=== PATIENT | male | born 1975 | race Caucasian/White ===

== ENCOUNTER → 2019-06-23 14:37 | Outpatient (BNVA) | payer OTHER, SELFPAY | PROVIDERS: Family Provider General Practice; PCP Family Medicine; Visit Provider Urology | DX: N39.9 Disorder of urinary system, unspecified (principal); R39.89 Other symptoms and signs involving the genitourinary system | CPT/HCPCS: 81001 ==

== ENCOUNTER → 2022-01-24 08:31 | Outpatient (BNVA) | payer OTHER, SELFPAY | PROVIDERS: Family Provider General Practice; PCP Family Medicine; Visit Provider Family Medicine | DX: F41.0 Panic disorder [episodic paroxysmal anxiety] (principal); F41.9 Anxiety disorder, unspecified; R00.0 Tachycardia, unspecified; Z13.1 Encounter for screening for diabetes mellitus; Z13.6 Encounter for screening for cardiovascular disorders | CPT/HCPCS: 80053; 80061; 83036; 84443; 85025 ==

== ENCOUNTER → 2022-05-31 08:44 | Outpatient (BNVA) | payer OTHER, SELFPAY | PROVIDERS: Family Provider General Practice; PCP Family Medicine; Visit Provider Family Medicine | DX: N52.9 Male erectile dysfunction, unspecified (principal); R68.82 Decreased libido; F41.9 Anxiety disorder, unspecified; F41.0 Panic disorder [episodic paroxysmal anxiety]; R42 Dizziness and giddiness; B35.6 Tinea cruris | CPT/HCPCS: 82040; 84270; 84403 ==

== ENCOUNTER → 2022-06-03 07:34 | Outpatient (BNVA) | payer OTHER, SELFPAY | PROVIDERS: Family Provider General Practice; PCP Family Medicine; Visit Provider Family Medicine | DX: E34.9 Endocrine disorder, unspecified (principal) | CPT/HCPCS: 84403 ==

== ENCOUNTER → 2022-07-17 15:11 | Outpatient (BNVA) | payer OTHER, SELFPAY | PROVIDERS: Family Provider General Practice; PCP Family Medicine; Visit Provider Family Medicine | DX: F41.0 Panic disorder [episodic paroxysmal anxiety] (principal); F41.9 Anxiety disorder, unspecified; I10 Essential (primary) hypertension; N52.9 Male erectile dysfunction, unspecified | CPT/HCPCS: 80178 ==

== ENCOUNTER 2022-09-02 05:58 | Outpatient (CLI) | payer OTHER, SELFPAY ==
--- NOTE | 2022-09-02 06:15 | US_ITS ---
WS: [id number] ULTRASOUND SOFT TISSUES LEFT supraclavicular. HISTORY: Palpable mass. COMPARISON: None available. TECHNIQUE: 2-D and color Doppler imaging is submitted. There is a well-circumscribed solid hypoechoic mass in the LEFT supraclavicular region measuring 3.0 x 2.1 x 2.5 cm. There is mild increased vascularity. Only a single lymph node is identified but the s urrounding area was not imaged. US/US soft tissue head neck [id number] IMPRESSION: 1. Abnormal soft tissue mass in the LEFT supraclavicular region suspicious for abnormal lymph node. 2. Recommend follow-up CT evaluation. CT neck and chest with IV contrast recom mended.
== END 2022-09-02 05:59 | disposition home or self-care (01) ==
PROVIDERS: PCP Family Medicine; Visit Provider Psychiatry & Neurology Neurology
DX: R29.90 Unspecified symptoms and signs involving the nervous system (principal)
CPT/HCPCS: 76536; 95813

== ENCOUNTER 2022-09-10 07:28 | Outpatient (CLI) | payer OTHER, SELFPAY ==
--- NOTE | 2022-09-10 | MR_ITS ---
WS: [id number] MRI HEAD WITH CONTRAST TECHNIQUE: Sagittal T1, T2 axial, T2 axial FLAIR, axial susceptibility weighted imaging, axial diffus ion weighted images, and coronal T2 images were obtained. Pre and post-T1 axial and post T1 coronal i mages. ADC and FSPGR images. CLINICAL INFORMATION: TREMORS COMPARISON: None. FINDINGS: No evidence of restricted diffusion to suggest acute ischemia. Ventricular system and basal cisterns are patent. No suspicious intracranial signal abnormalities. Normal palacios-white differentiation. Linda l posterior fossa. Normal vascular flow voids at the skull base. No extra-axial fluid collections. No evidence of mass or mass effect. Paranasal sinuses and mastoid air cells well aerated. No hemosiderin on susceptibly weighted images. Normal optic chiasm and pituitary infundibulum. Normal cavernous sinuses and Meckel's cave. Temporal lobes and hippocampal formations are normal in appearance. No abnormal intracranial enhancement. Norm al visualized dural venous sinuses. No other suspicious findings. MR/MR head wo/w con [id number] IMPRESSION: 1. No evidence of restricted diffusion to suggest acute ischemia. 2. No suspicious intracranial signal abnormalities. 3. No hemosiderin on susceptibly weighted images. 4. No abnormal gadolinium enhancement. 5. Temporal lobes and hippocampal formations are normal in appearance.
[2022-09-10] MEDS: gadobenate dimeglumine 20 mL vial IV (08:24)
== END 2022-09-10 07:29 | disposition home or self-care (01) ==
PROVIDERS: PCP Family Medicine; Visit Provider Psychiatry & Neurology Neurology
DX: R25.1 Tremor, unspecified (principal)
CPT/HCPCS: 70553; A9577

== ENCOUNTER 2022-09-18 09:07 | Outpatient (CLI) | payer OTHER, SELFPAY ==
--- NOTE | 2022-09-18 09:30 | CT_ITS ---
WS: [id number] CT CHEST TECHNIQUE: Contrast enhanced CT of the chest with coronal and sagittal reformatted images. CLINICAL INFORMATION: R22.1 - Localized swelling, mass and lump, neck COMPARISON: CT neck September 18, 2022 DLP: 549.[address] scans at [facility] use at least one of these dose optimization techniques: automated e xposure control; mA and/or kV adjustment per patient size (includes targeted exams where dose is matc hed to clinical indication); or iterative reconstruction. FINDINGS:Tiny noncalcified nodule in the lingula measuring 4 mm. Additional noncalcified nodule LEFT upper lobe measuring 4.8 mm. LEFT upper lobe noncalcified nodule measuring 3.5 mm. Tree-in-bud opacit ies in the lingula likely inflammatory. LEFT lower lobe nodule along the fissure measuring 5.3 mm. Sm all nodule along the RIGHT lower lobe near the diaphragm measuring 6 mm. Lungs are well aerated. Slight bibasilar atelectasis. Moderate esophageal hiatal hernia. Aortic calci fication. No mediastinal or hilar lymphadenopathy. No axillary lymphadenopathy. Adrenal glands are normal. Diffuse fatty infiltration liver normal portal vein and splenic vein. Tiny cyst undersurface RIGHT hepatic lobe. Normal spleen. Adrenal glands are normal. CT/CT chest w con* [id number] IMPRESSION: 1. No focal pneumonia or pleural fluid. 2. A few scattered subcentimeter pulmonary nodules described above. Recommend 12 month follow-up. 3. No mediastinal or hilar lymphadenopathy. 4. Diffuse fatty infiltration liver. 5. Moderate esophageal hiatal hernia.
--- NOTE | 2022-09-18 09:45 | CT_ITS ---
WS: [id number] CT NECK TECHNIQUE: Contrast-enhanced CT of the neck with coronal and sagittal reformatted images. CLINICAL INFORMATION: R22.1 - Localized swelling, mass and lump, neck COMPARISON: None. DLP: 260.[address] scans at [facility] use at least one of these dose optimization techniques: automated e xposure control; mA and/or kV adjustment per patient size (includes targeted exams where dose is matc hed to clinical indication); or iterative reconstruction. FINDINGS: Palpable marker overlying the LEFT lower neck. Deep to the palpable marker is an ovoid karla d nodule measuring 3.2 x 2.2 x 2.7 CM. This is well-circumscribed and located within the posterior tr iangle. Submandibular and parotid glands are normal. Tongue base appears normal. Normal posterior nasopharynx . Normal parapharyngeal fat. No evidence of supraglottic or glottic mass. Normal subglottic airway. T hyroid gland is normal. Lung apices are well aerated. Straightening with slight reversal normal cervical lordosis. Disc space narrowing worse at C5-C6 with disc osteophyte complex with moderate central canal stenosis. Mastoid air cells well aerated. Small retention cyst LEFT maxillary sinus. Partially visualized paranasal sin uses well aerated. Lung apices are well aerated. CT/CT neck w con* [id number] IMPRESSION: 1. Deep to the palpable marker LEFT lower neck posterior triangle is a well-ci rcumscribed ovoid solid lesion measuring 3.2 x 2.2 x 2.7 CM. Consider further e valuation with ultrasound-guided FNA. 2. Differential considerations include lymphadenopathy, metastatic disease, or possibly peripheral nerve sheath tumor. 3. No evidence of supraglottic or glottic mass. 4. Salivary glands are normal. 5. Otherwise no cervical lymphadenopathy. 6. Moderate central canal stenosis cervical spine due to disc osteophyte compl ex at C5-C6.
[2022-09-18] MEDS: iohexol 350 mg/mL 500 mL Btl (per mL) IV ×2 (10:00)
== END 2022-09-18 09:08 | disposition home or self-care (01) ==
PROVIDERS: PCP Family Medicine; Visit Provider Psychiatry & Neurology Neurology
DX: R22.1 Localized swelling, mass and lump, neck (principal); M48.02 Spinal stenosis, cervical region; M25.78 Osteophyte, vertebrae; R91.8 Other nonspecific abnormal finding of lung field; K76.0 Fatty (change of) liver, not elsewhere classified; K44.9 Diaphragmatic hernia without obstruction or gangrene
CPT/HCPCS: 70491; 71260; Q9967

== ENCOUNTER → 2022-09-24 15:02 | Outpatient (BNVA) | payer OTHER, SELFPAY | PROVIDERS: PCP Family Medicine; Visit Provider Psychiatry & Neurology Neurology | DX: R51.9 Headache, unspecified (principal); F41.9 Anxiety disorder, unspecified; F41.0 Panic disorder [episodic paroxysmal anxiety]; R41.0 Disorientation, unspecified; R25.1 Tremor, unspecified; R55 Syncope and collapse; Z77.098 Contact with and (suspected) exposure to other hazardous, chiefly nonmedicinal, chemicals | CPT/HCPCS: 99213 ==

== ENCOUNTER → 2022-10-01 13:43 | Outpatient (BNVA) | payer OTHER, SELFPAY | PROVIDERS: PCP Family Medicine; Visit Provider Family Medicine | DX: R59.9 Enlarged lymph nodes, unspecified (principal); I10 Essential (primary) hypertension; F41.9 Anxiety disorder, unspecified; K44.9 Diaphragmatic hernia without obstruction or gangrene | CPT/HCPCS: 85025 ==

== ENCOUNTER → 2022-12-11 14:04 | Outpatient (BNVA) | payer OTHER, SELFPAY | PROVIDERS: PCP Family Medicine; Visit Provider Psychiatry & Neurology Neurology | DX: R55 Syncope and collapse (principal); R06.02 Shortness of breath; R59.0 Localized enlarged lymph nodes; Z77.098 Contact with and (suspected) exposure to other hazardous, chiefly nonmedicinal, chemicals | CPT/HCPCS: 99212 ==

== ENCOUNTER 2023-09-29 08:12 | Outpatient (CLI) | payer OTHER, SELFPAY ==
--- NOTE | 2023-09-29 08:19 | CT_ITS ---
WS: [email or web address] CT chest w con* [id number] HISTORY: LUNG NODULES TECHNIQUE: Axial imaging performed through the thorax. Coronal and sagittal reformats are submitted. All CT scans at [facility] use at least one of these dose optimization techniques: automated exposure control; mA and/or kV adjustment per patient size (includes targeted exams where dose is mat ched to clinical indication); or iterative reconstruction. CONTRAST: Omnipaque 350; 100 mL IV. DLP: 717.29 mGy.cm COMPARISON: 09/18/2022 Lungs and central airway: Lungs are much better aerated on today's examination due to improved inspir ation during the image acquisition. Reidentified are multiple noncalcified pulmonary nodules. None of the nodules have increased in size and no new nodules are identified. The largest nodule is LEFT per ifissural measuring 5 mm. Perifissural nodules are likely benign. Additional nodules in the LEFT upper and LEFT lower lobes are stable. Single nodule measuring 4 mm along the RIGHT diaphragmatic surface. No pneumonia. Pleura: Normal. No pleural effusion. Heart and pericardium: Normal size heart with no pericardial effusion. Mediastinum and keren: No mediastinum or hilar adenopathy. Vessels: Normal size aortic and pulmonary artery. No coronary artery calcifications. Chest wall and lower neck: No soft tissue masses. Upper abdomen: Hepatic steatosis. No intrahepatic duct dilatation. Moderate size hiatal hernia. No ad renal mass. Visualized spleen and pancreas are negative. Osseous structures: Mild thoracic spondylosis. No destructive bone lesions. CT/CT chest w con* [id number] IMPRESSION: 1. Stable bilateral pulmonary nodules are subcentimeter and noncalcified. The largest nodules 5 mm LEFT perifissural. To demonstrate long-term stability eran mmend additional 12-month chest CT follow-up. 2. No pneumonia. 3. Improved aeration throughout both lungs since the prior study. 4. Hepatic steatosis. 5. Moderate hiatal hernia.
[2023-09-29] MEDS: iohexol 350 mg/mL 500 mL Btl (per mL) IV (08:54)
== END 2023-09-29 08:13 | disposition home or self-care (01) ==
LOC: RAD 08:13
PROVIDERS: PCP Family Medicine; Visit Provider Nurse Practitioner Family
DX: R91.8 Other nonspecific abnormal finding of lung field (principal); K76.0 Fatty (change of) liver, not elsewhere classified; K44.1 Diaphragmatic hernia with gangrene; M47.814 Spondylosis without myelopathy or radiculopathy, thoracic region
CPT/HCPCS: 71260; Q9967

== ENCOUNTER 2024-10-21 12:03 | Outpatient (CLI) | payer OTHER, SELFPAY ==
--- NOTE | 2024-10-21 12:11 | CT_ITS ---
WS: [email or web address] CT chest w con* [id number] HISTORY: LUNG NODULE TECHNIQUE: Axial imaging performed through the thorax. Coronal and sagittal reformats are submitted. All CT scans at [facility] use at least one of these dose optimization techniques: automated exposure control; mA and/or kV adjustment per patient size (includes targeted exams where dose is matched to clinical indication); or iterative reconstruction. CONTRAST: Omnipaque 350; 100 mL IV. DLP: 629.22 mGy.cm COMPARISON: 09/29/2023, 09/18/2022 Lungs and central airway: Well-aerated lungs. Bilateral noncalcified pulmonary nodules are reidentified. The largest nodule associated with the LEFT fissure measures 7 mm. There are additional nodules scattered throughout both lungs which are very small caliber and stable. No new nodule or mass. No increasing size of any of the nodules previously described. No pneumonia. Pleura: Normal. No pleural effusion. Heart and pericardium: Normal size heart with no pericardial effusion. Mediastinum and keren: No mediastinum or hilar adenopathy. Vessels: Normal size aortic and pulmonary artery. No coronary artery calcifications. Chest wall and lower neck: No soft tissue masses. Upper abdomen: Normal. Osseous structures: No destructive process. CT/CT chest w con* [id number] IMPRESSION: 1. Stable bilateral noncalcified pulmonary nodules since 09/18/2022. No additio nal imaging follow-up necessary. 2. No mediastinal or hilar adenopathy.
[2024-10-21] MEDS: iohexol 350 mg/mL 500 mL Btl (per mL) IV (12:23)
== END 2024-10-21 12:04 | disposition home or self-care (01) ==
LOC: RAD 12:04
PROVIDERS: PCP Family Medicine; Visit Provider Nurse Practitioner Family
DX: R91.8 Other nonspecific abnormal finding of lung field (principal)
CPT/HCPCS: 71260

== ENCOUNTER → 2025-04-07 09:08 | Outpatient (BNVA) | payer OTHER, SELFPAY | PROVIDERS: PCP Family Medicine; Visit Provider Family Medicine | DX: Z13.1 Encounter for screening for diabetes mellitus (principal); Z13.6 Encounter for screening for cardiovascular disorders; F41.9 Anxiety disorder, unspecified; F41.0 Panic disorder [episodic paroxysmal anxiety]; I10 Essential (primary) hypertension; E03.9 Hypothyroidism, unspecified | CPT/HCPCS: 80053; 80061; 82607; 84443; 85025 ==